=== PATIENT | female | born 1995 | race Caucasian/White ===

== ENCOUNTER 2023-03-06 15:52 | Emergency (ER) | payer BC, SELFPAY ==
[2023-03-06 16:07] VITALS: BP 121/67; PULSE 73; RESP 16; TEMP 37.3; O2SAT 100
--- NOTE | 2023-03-06 16:07 | ED.SKABFB ---
HPI - Skin/Abscess/Foreign Bdy General Chief complaint: Skin/Abscess/Foreign Body Stated complaint: Rash Time Seen by Provider: 03/06/23 16:07 Source: patient Mode of arrival: ambulatory Limitations: no limitations History of Present Illness HPI narrative: Patient is a 27-year-old female that presents with rash. Patient states that originally started the week of . Patient was seen at an urgent care and was diagnosed with poison christopher and given a Medrol Dosepak. Patient states it improved slightly but since completing course has worsened. Patient was also having rash to perineum area. Patient was seen by OBGYN and was diagnosed with yeast infection. Patient took 1 dose of fluconazole. Since yesterday patient has had rash appear to bilateral hands including palms. Denies any fever or contact with [id number]. Patient also reports mild sore throat since Tuesday and headache. Related Data Home Medications Medication Instructions Recorded Confirmed fluconazole 150 mg tablet mg 03/06/23 norethindrone acetate 1.5 tablet 03/06/23 mg-ethinyl estradiol 30 mcg tablet () Allergies Allergy/AdvReac Type Severity Reaction Status Date / Time No Known Allergies Allergy Verified 03/06/23 16:06 Review of Systems Review of Systems: All systems reviewed & are unremarkable except as noted in HPI and below Constitutional: Constitutional: Denies body ache(s), Denies chills, Denies fatigue, Denies fever(s), Reports headache(s), Denies malaise and Denies weakness Eyes: Eyes: Denies blurry vision, Denies irritation and Denies loss of vision ENT: Denies otalgia, Denies headache(s), Denies nasal discharge, Denies sinus pain and Reports sore throat Cardiovascular: Cardiovascular: Denies chest pain, Denies irregular heart rhythm and Denies dyspnea Respiratory: Respiratory: Denies dyspnea Gastrointestinal: Gastrointestinal: Denies abdominal pain, Denies melena, Denies hematochezia, Denies diarrhea, Denies nausea and Denies vomiting Musculoskeletal: Musculoskeletal: Denies back pain, Denies myalgias and Denies arthralgias Integumentary/Breasts: Skin/Breast: Reports pruritus and Reports rash Neurologic: Denies headache(s), Denies loss of vision and Denies weakness Psychiatric: Psychiatric: Reports no additional psychiatric complaints Endocrine: Endocrine: Denies fatigue PMFSH Comments At time of signature, agree with nursing past medical, surgical, social and family history. There is no relevant family history pertinent to the presenting complaint. Exam Const: General: cooperative, healthy appearing, comfortable, no acute distress and well nourished Nutritional Appearance: well nourished Orientation/consciousness: patient oriented x3 Limitations: no limitations HENMT: Head: normal to inspection, normocephalic and atraumatic Ears: hearing grossly normal bilaterally and external ears normal Face/Nose/Sinus: Normal external nose present, normal facial exam and face symmetric Face and sinus: normal facial exam and face symmetric Mouth: Yes lip normal Eyes: General: appearance normal, both eyes and all related structures Alignment and Position: alignment normal and position normal Periorbital: periorbital findings normal Eyelids: eyelids normal Pupils: Equal, round and reactive pupils present EOM: EOMs intact bilaterally Neck: Neck: normal visual inspection, full ROM and supple Chest: Chest palpation & inspection: normal inspection of the chest Resp: Effort & Inspection: normal respiratory effort and able to speak in complete sentences Auscultation: clear to auscultation bilaterally Cardio: Rate: regular rate Rhythm: regular rhythm Heart sounds: S1 normal heart sound present and S2 normal heart sound present GI: Inspection: normal to inspection Skin: General skin exam: normal color and no rashes or lesions noted Rashes: rashes noted macules diffuse arm size (0.25 cm), arrangement grouped, borders s
== END 2023-03-06 17:10 | disposition home or self-care (01) ==
PROVIDERS: Emergency Provider Nurse Practitioner Family
DX: B08.4 Enteroviral vesicular stomatitis with exanthem (principal); L23.9 Allergic contact dermatitis, unspecified cause
CPT/HCPCS: 87081; 87880; 99203; G0463